=== PATIENT | female | born 1930 | race Caucasian/White ===

== ENCOUNTER 2018-11-21 10:28 | Emergency (ER) | payer MEDICARE, BC ==
--- NOTE | 2018-11-21 13:28 | CT ---
CT OF THE BRAIN WITHOUT CONTRAST: Date: 11/21/18 A noncontrast study shows no intracranial bleeding or extra-axial hematoma. The ventricles are normal in size and show no shift. There is no sign of stroke, mass, or edema. The calvarium appears intact. Several cysts are seen in the floor of each maxillary sinus. IMPRESSION: No acute intracranial finding. POS: HOME
== END 2018-11-21 11:15 | disposition home or self-care (01) ==
LOC: BURERS 10:28
DX: S00.03XA Contusion of scalp, initial encounter (principal); S50.02XA Contusion of left elbow, initial encounter; E78.00 Pure hypercholesterolemia, unspecified; D64.9 Anemia, unspecified; G47.30 Sleep apnea, unspecified; Z79.899 Other long term (current) drug therapy; Z79.01 Long term (current) use of anticoagulants; W06.XXXA Fall from bed, initial encounter
CPT/HCPCS: 70450

== ENCOUNTER 2019-01-11 12:16 | Emergency (ER) | payer MEDICARE, BC ==
[2019-01-11 13:11] LABS: INR-International Normal Ratio 3.2; Prothrombin Time 32.1 SEC (12.0-14.7)
[2019-01-11 13:12] LABS: Bilirubin Negative (Negative); Blood, Urine Negative (Negative); Clarity Clear (Clear); Glucose, Urine (Dipstick) Negative (Negative); Leukocyte Negative (Negative); Nitrite Negative (Negative); Protein, Urine (Dipstick) Negative (Neg-Trace)
[2019-01-11 13:18] LABS: Hemoglobin 8.5 g/dL (12.0-16.0); Mean Corpuscular HGB CONC 30.6 g/dL (32.0-36.0); Mean Corpuscular Hemoglobin 29.8 pg (27.0-31.0); Mean Corpuscular Volume 97.5 fL (78.0-98.0); Mean Platelet Volume 8.4 fL (7.4-10.4); Platelet Count 60 thou/uL (130-400); RBC Distribution Width 19.6 % (11.5-14.5); Red Blood Cell (RBC) Count 2.86 mill/uL (4.20-5.40)
[2019-01-11 13:22] LABS: ALT (SGPT) 16 U/L (8-55); AST (SGOT) 30 U/L (5-34); Albumin 3.6 g/dL (3.4-4.8); Alkaline Phosphatase 91 U/L (40-110); Anion Gap 15 mmol/L (10-20); BUN (Urea Nitrogen) 58 mg/dL (9.8-20.1); Bilirubin, Total 1.8 mg/dL (0.2-1.2); Calc. Creatinine Clearance 0 mL/min (70-130); Calcium 9.6 mg/dL (7.8-10.44); Carbon Dioxide 30 mmol/L (23-31); Chloride 103 mmol/L (98-107); Estimated GFR-MDRD 29; Globulin 2.7 g/dL (2.4-3.5); Glucose 106 mg/dL (83-110); Potassium 3.4 mmol/L (3.5-5.1); Protein, Total 6.3 g/dL (6.0-8.3); Sodium 145 mmol/L (136-145)
[2019-01-11 13:34] LABS: Anisocytosis SLIGHT = 6-15 cells (100X) (0-5/hpf); Elliptocytes SLIGHT = 2-5 cells (100X) (0-1/hpf); Eosinophils 2 % (0-10); Hypochromia SLIGHT = 6-15 cells (100X) (0-5/hpf); Lymphocytes 37 % (21-51); MDiff Complete? YES; Monocytes 4 % (0-10); Neutrophil 57 % (42-75); Platelet Morphology Comment Appears Decreased; Poikilocytosis SLIGHT = 6-15 cells (100X) (0-5/hpf); Schistocytes SLIGHT = 2-5 cells (100X) (0-1/hpf); Tear Drops SLIGHT = 2-5 cells (100X) (0-1/hpf)
[2019-01-11] MEDS ORDERED: Pantoprazole 40 MG VIAL ONE (13:55)
[2019-01-11] MEDS ORDERED: Phytonadione 10 MG/ML AMP ONE (15:33)
--- NOTE | 2019-01-11 19:46 | CT ---
CT OF THE BRAIN WITHOUT CONTRAST: 01/11/19 The ventricles are normal in size with no shift. No intracranial bleeding, mass or sign of acute stro ke was found. There is really very little atrophy for age. The calvarium appears normal and the visib le paranasal sinuses and mastoid air cells are clear. IMPRESSION: No acute intracranial finding. POS: HOME
--- NOTE | 2019-01-11 19:56 | RAD ---
PORTABLE CHEST: 01/11/19 An AP portable film at 1301 is presented with no prior films available for comparison. The heart is markedly enlarged although there are no congestive changes and pleural effusions. The ape suggests there could be a pericardial effusion, but this truly could all be merely enlarged heart . Calcific changes are seen in the aortic arch. The lungs are clear except for some minimal scarring or atelectasis in the lingula. IMPRESSION: Marked cardiomegaly. No acute findings otherwise. POS: HOME
== END 2019-01-11 17:37 | disposition short-term general hospital (02) ==
LOC: BURERS 12:16
DX: K92.2 Gastrointestinal hemorrhage, unspecified (principal); D64.9 Anemia, unspecified; E78.00 Pure hypercholesterolemia, unspecified; G47.30 Sleep apnea, unspecified
CPT/HCPCS: 36430; 70450; 71045; 80053; 81003; 82274; 83880; 84484; 85025; 85610; 85730; 86850; 86900; 86901; 86920; 87077; 87086; 93005; P9016; 87186; 96365; 96366; 96375; 96376; C9113; J3430